=== PATIENT | female | born 1950 | race Caucasian/White ===

== ENCOUNTER 2020-07-10 07:18 | Day surgery (SDC) | payer MEDICARE ==
[2020-07-08 11:45] LABS: COVID AG,FIA SOURCE NASOPHARYNGEAL
[~2020-07-10] VITALS: Ht 165.1 cm; Wt 63.6 kg
[~2020-07-10 07:18] MED LIST: KETOROLAC TROMETHAMINE 0.5% 5 ML OPHTHALMIC SOLUTION ONE; MOXIFLOXACIN HCL 0.5% 3 ML OPHTHALMIC SOLUTION ONE; PHENYLEPHRINE HCL 2.5% 2 ML OPHTHALMIC SOLUTION ONE; RINGERS SOLUTION,LACTATED 500 ML IV ONE; TROPICAMIDE 1% 2 ML OPHTHALMIC SOLUTION ONE
[2020-07-10] MEDS ORDERED: POVIDONE-IODINE 10% 15 ML SOLUTION UD TP ONE (07:19)
[2020-07-10] MEDS ORDERED: LIDOCAINE/PF 1% 2 ML VIAL IM ONE (07:19)
[2020-07-10] MEDS ORDERED: CHONDR SULF A SOD/HYALURONATE 1.05 ML KIT IO ONE (07:19)
[2020-07-10] MEDS ORDERED: FentaNYL CITRATE PF 100 MCG/2 ML VIAL IVP ONE (07:19)
[2020-07-10] MEDS ORDERED: ONDANSETRON HCL 4 MG/2 ML VIAL IVP ONE (07:19)
[2020-07-10] MEDS ORDERED: MIDAZOLAM HCL 2 MG/2 ML VIAL IVP ONE (07:19)
[2020-07-10] MEDS ORDERED: TETRACAINE HCL/PF 0.5% 4 ML OPHTHALMIC SOLUTION OU ONE (07:19)
[2020-07-10] MEDS ORDERED: EPINEPHrine 1:1,000 [1 MG/ML] AMP IM ONE (07:19)
[2020-07-10] MEDS ORDERED: RINGERS SOLUTION,LACTATED 500 ML IV ONE (08:00)
[2020-07-10] MEDS: MOXIFLOXACIN HCL 0.5% 3 ML OPHTHALMIC SOLUTION OS SCH ×3 (08:17→08:31)
[2020-07-10] MEDS: TROPICAMIDE 1% 2 ML OPHTHALMIC SOLUTION OS SCH ×3 (08:17→08:31)
[2020-07-10] MEDS: PHENYLEPHRINE HCL 2.5% 2 ML OPHTHALMIC SOLUTION OS SCH ×3 (08:17→08:31)
[2020-07-10] MEDS: KETOROLAC TROMETHAMINE 0.5% 5 ML OPHTHALMIC SOLUTION OS SCH ×3 (08:17→08:31)
[2020-07-10] MEDS ORDERED: AMLO-383 PO (08:32)
[2020-07-10] MEDS ORDERED: LEVO-108 PO (08:32)
[2020-07-10] MEDS ORDERED: METO25 PO (08:32)
[2020-07-10] MEDS ORDERED: PANT-31 PO (08:33)
[2020-07-10] MEDS ORDERED: ATOR10TA84 PO (08:33)
[2020-07-10] MEDS ORDERED: ONDA-104 PO (08:34)
[2020-07-10] MEDS ORDERED: FURO20 PO (08:35)
[2020-07-10] MEDS ORDERED: DOCU-275 PO (08:37)
== END 2020-07-10 10:10 | disposition home or self-care (01) ==
LOC: SURGERY 07:18
PROVIDERS: ATTEND Ophthalmology
DX: H25.12 Age-related nuclear cataract, left eye (principal); I10 Essential (primary) hypertension; Z79.82 Long term (current) use of aspirin; Z98.890 Other specified postprocedural states; Z79.899 Other long term (current) drug therapy
CPT/HCPCS: 66984; 87426; 93005; A9575; C9803; J0171; J2250; J2405; J3010; J3490; J7120; V2632

== ENCOUNTER → 2020-08-19 | Day surgery (SDC) | payer MEDICARE ==
[~2020-08-19] VITALS: Ht 165.1 cm; Wt 63.6 kg
[~2020-08-19] MED LIST changes: +AMLO-383 PO; +ATOR10TA84 PO; +DOCU-275 PO; +DOCU100C33 PO; +FURO20 PO; +KETOROLAC TROMETHAMINE 0.5% 5 ML OPHTHALMIC SOLUTION OD SCH; -KETOROLAC TROMETHAMINE 0.5% 5 ML OPHTHALMIC SOLUTION ONE; +LEVO-108 PO; +METO25 PO; +MOXIFLOXACIN HCL 0.5% 3 ML OPHTHALMIC SOLUTION OD SCH; -MOXIFLOXACIN HCL 0.5% 3 ML OPHTHALMIC SOLUTION ONE; +ONDA-104 PO; +ONDA4TAB96 PO; +PANT-31 PO; +PHENYLEPHRINE HCL 2.5% 2 ML OPHTHALMIC SOLUTION OD SCH; -PHENYLEPHRINE HCL 2.5% 2 ML OPHTHALMIC SOLUTION ONE; +TROPICAMIDE 1% 2 ML OPHTHALMIC SOLUTION OD SCH; -TROPICAMIDE 1% 2 ML OPHTHALMIC SOLUTION ONE
[2020-08-19 13:58] LABS: COVID AG,FIA SOURCE NASOPHARYNGEAL
== END | disposition home or self-care (01) ==
LOC: SURGERY 12:00
PROVIDERS: ATTEND Ophthalmology
DX: H26.8 Other specified cataract (principal); Z53.8 Procedure and treatment not carried out for other reasons
CPT/HCPCS: 87426; C9803